=== PATIENT | female | born 1970 | race Caucasian/White ===

== ENCOUNTER 2019-12-19 17:22 | Outpatient (CLI) | payer BC, SELFPAY ==
--- NOTE | ~2019-12-19 | XR_ITS ---
XR abdomen/kub 1V 12/19/2019 17:58 Indication: Kidney stones Procedure: KUB Comparison: Comparison to multiple prior studies sequentially, with oldest reviewed study dated 07/2018. Findings: Bowel pattern is nonobstructive. Moderate colonic fecal loading. There are multiple pelvic phleboliths. No definite renal or ureteral stones are identified. Interval removal of left internal u reteral stent. Stones noted in the left kidney on prior examination are not visualized currently. The re are surgical changes of the spine at L3 and L4, unchanged. Impression: 1: No acute abdominal abnormality. Reviewed, dictated and finalized at location A. TER SCORER Impression: 1: No acute abdominal abnormality.
--- NOTE | ~2019-12-19 | CT_ITS ---
EXAMINATION: CT abdomen pelvis wo con DATE: 12/19/2019 18:02 INDICATION: Calcium kidney stone TECHNIQUE: Computed tomography (CT) of the abdomen and pelvis was performed without intravenous contr ast. Automated exposure control and iterative reconstruction technique were employed. Exam dose: 241 .53 mGy-cm total exam DLP. COMPARISON: None. FINDINGS: Small right fat-containing foramen of Bochdalek hernia. The lung bases are clear. Normal heart size. No pericardial or pleural effusion. The liver, gallbladder, bile ducts, spleen, pancreas, pancreatic duct and adrenal glands are unremark able. No apparent renal space-occupying mass lesion is evident on this limited noncontrast examination. There are 3 adjacent medial mid to upper left renal nonobstructing calculi measuring approximately 2. 5 mm, 5 mm and 11 mm maximal dimension. The largest of these has an attenuation of approximately 920 Hounsfield units. No other definite urinary tract calculus. No hydroureteronephrosis. The urinary bladder is relatively evacuated. Normal caliber of the abdominal aorta. No intraperitoneal or retroperitoneal or pelvic mass lesion or adenopathy or ascites. Normal appendix. No bowel obstruction or intraperitoneal free air. Postoperative changes of the posterior elements of L3 and L4. Unilateral left L5 pars interarticularis defect. No spondylolisthesis. No suspicious osteolytic or os teoblastic lesions are noted. IMPRESSION: Nonobstructive left nephrolithiasis Reviewed, dictated and finalized at Location A. Reviewed, dictated and finalized at location B. SAPPER
== END 2019-12-19 17:23 | disposition home or self-care (01) ==
PROVIDERS: PCP Family Medicine; Visit Provider Urology
DX: N20.0 Calculus of kidney (principal)
CPT/HCPCS: 74018; 74176

== ENCOUNTER 2020-10-14 09:04 | Emergency (ER) | payer OTHER, BC, SELFPAY ==
--- NOTE | ~2020-10-14 | CT_ITS ---
EXAMINATION: CT abdomen pelvis wo con DATE: 10/14/2020 10:47 INDICATION: Kidney stone TECHNIQUE: Computed tomography (CT) of the abdomen and pelvis was performed without intravenous contr ast. Automated exposure control and iterative reconstruction technique were employed. The dose-length product was 793.18 mGy-cm. COMPARISON: 12/19/2019 and 12/30/2017 FINDINGS: Minimal dependent atelectasis in the bilateral lower lobes. Heart size is normal. No pericardial or p leural effusion. Liver, gallbladder, spleen, pancreas, right kidney and bilateral adrenal glands are normal. Cluster of 3 calcifications in the region of cortical scarring at the upper pole of the left kidney, the largest of calcification measuring 9 x 4 x 6 mm, the smaller calcifications measuring 3 m m and 1 mm. No stones at the right kidney or along the course of the ureters. No hydronephrosis. Unch anged pattern of phleboliths in the pelvis. Moderate amount of stool scattered throughout the colon. No abnormal bowel wall thickening or obstruction. Appendix is normal. Bladder is normal. The uterus i s not identified and has likely been surgically resected. No free intraperitoneal gas or fluid. No pa thologically enlarged abdominal or pelvic lymphadenopathy. Left-sided. L5 pars interarticularis defec t. Postoperative changes in the lower lumbar spine with plate and screw fixation spanning osteotomies at the left and right lamina at L3 and L4. IMPRESSION: 1. Unchanged nonobstructing left nephrolithiasis. Reviewed, dictated and finalized at location A. O VISUAL COORDINATOR
[2020-10-14 09:08] VITALS: BP 122/81; PULSE 60; RESP 16; TEMP 36.8; O2SAT 100
[2020-10-14 10:19] LABS: Basophils Percent Auto 0.7 % (0.2-1.2); Eosinophils Absolute Auto 0.3 K/mm3 (0-0.3); Eosinophils Percent Auto 4.8 % (0-4.4); Hematocrit 39.7 % (37.0-47.0); Hemoglobin 13.8 g/dL (12.0-15.0); Immature Granulocyte Absolute 0.01 K/mm3 (0.00-0.031); Immature Granulocyte Percent A 0.2 % (0-0.5); Lymphocytes Absolute Auto 1.63 K/mm3 (0.9-3.2); Lymphocytes Percent Auto 28.8 % (18.3-44.2); Mean Corpuscular HGB Conc 34.8 g/dl (32-36); Mean Corpuscular Hemoglobin 30.7 pg (26-34); Mean Corpuscular Volume 88.2 fl (80-100); Mean Platelet Volume 9.4 fl (7.4-10.4); Monocytes Absolute Auto 0.5 K/mm3 (0.1-0.6); Neutrophils Absolute Auto 3.2 K/mm3 (1.3-6.7); Neutrophils Percent Auto 56.5 % (45.5-73.1); Platelet Count Result 282 k/mm3 (150-375); Red Cell Distribution Width 11.9 % (11.5-14.5); White Blood Count 5.7 K/mm3 (4.5-10.0)
--- NOTE | 2020-10-14 10:21 | ED.BACK ---
HPI - Back Pain/Injury General Chief Complaint: Back Pain/Injury Stated Complaint: CHRONIC BACK PAIN Time Seen by Provider: 10/14/20 10:07 Source: patient and family Mode of arrival: ambulatory Limitations: no limitations History of Present Illness HPI Narrative: Patient presents with lower back pain started last night after getting up from a chair suddenly. History of chronic lower back pain, surgery, intermittent flareup. Patient denies any trauma. Also denies any fever, chills, nausea, vomiting, abdominal pain, urinary symptoms. Patient reports having history of total hysterectomy and started having vaginal bleeding yesterday. Patient reports a history of kidney stone. Related Data Home Medications Medication Instructions Recorded Confirmed conjugated estrogens [Premarin] 0.625 mg VAGINAL DAILY 10/14/20 triamcinolone acetonide applic TOPICAL 10/14/20 Allergies Allergy/AdvReac Type Severity Reaction Status Date / Time No Known Allergies Allergy Verified 10/14/20 10:01 Review of Systems Review of Systems: Narrative: CONSTITUTIONAL: Denies fever, chills, or sweats. EYES: Denies visual changes, redness, or discharge. ENT: Denies rhinorrhea, congestion, sore throat, or otalgia. CARDIOVASCULAR: Denies chest pain, palpitations, or edema. RESPIRATORY: Denies cough or dyspnea. GASTROINTESTINAL: Denies abdominal pain, nausea, vomiting, or diarrhea. GENITOURINARY: Denies dysuria or hematuria. SKIN: Denies rash or itching. MUSCULOSKELETAL: Lower back pain NEUROLOGIC: Denies headache, numbness, or weakness. PSYCHIATRIC: Denies anxiety or depression. PMFSH Social History Social History Smoking status: Never smoker Exam Narrative: Exam Narrative: General appearance: Well-developed, well-nourished, significant other at the bedside Skin: Normal color Head: Normocephalic, nontraumatic Eyes: Clear conjunctiva ENT: Oropharynx normal, ears normal, nose normal Neck: Supple, nontender Chest and respiratory: Airway patent, no respiratory distress, no accessory muscle use Heart: Regular rate/rhythm Abdomen: Soft, nontender, no organomegaly, quiet bowel sounds Vascular: Normal peripheral pulses, normal capillary refill. Musculoskeletal: Decreased range of motion, mild diffuse tenderness across lumbar area with deep palpation Neurologic: Alert and oriented ?3, ASSISTANT AT SURGERY is normal as tested, no gross motor deficit : External Female Exam: normal external appearance Speculum Exam - Vagina: normal appearance of the vagina, normal palpation and swelling (No vaginal bleeding whatsoever) Course Course Emergency Course: Improving Vital Signs Vital signs: Vital Signs Temperature 36.8 C 10/14/20 09:08 Pulse Rate 60 10/14/20 09:08 Respiratory Rate 16 10/14/20 09:08 Blood Pressure 122/81 10/14/20 09:08 Pulse Oximetry 100 10/14/20 09:08 Temperature 36.8 C 10/14/20 09:08 Pulse Rate 51 L 10/14/20 11:19 Respiratory Rate 18 10/14/20 10:42 Blood Pressure 100/68 10/14/20 11:19 Pulse Oximetry 99 10/14/20 11:19 MDM - Back Pain/Injury MDM Narrative Medical decision making narrative: Exacerbation of chronic lower back pain. Labs, CT abdomen pelvis rule out kidney stone, urine analysis ordered. Toradol, Dilaudid, Zofran, Valium IV ordered. Differential Diagnosis Differential diagnosis: Likely strain of lumbar region, renal colic and pyelonephritis Lab Data Result diagrams: 10/14/20 10:13 10/14/20 10:13 Labs: Lab Results 10/14/20 10/14/20 10/14/20 Range/Units 10:13 10:13 10:33 WBC 5.7 (4.5-10.0) K/mm3 RBC 4.50 (4.2-5.4) M/mm3 Hgb 13.8 (12.0-15.0) g/dL Hct 39.7 (37.0-4
[2020-10-14] MEDS: diazePAM INJ (*CRX) 10 MG/2 ML SYRINGE 5 MG IV PUSH (10:30)
[2020-10-14] MEDS: ONDANSETRON INJ 4 MG/2 ML VIAL IV PUSH (10:30)
[2020-10-14] MEDS: HYDROmorphone HCL INJ (*CRX) 1 MG/ML SYR 0.5 MG IV PUSH (10:30)
[2020-10-14 10:31] LABS: Alanine Aminotransferase 24 U/L (4-35); Albumin Level 4.2 g/dL (3.5-5.1); Alkaline Phosphatase 85 U/L (38-126); Anion Gap 5 mmol/L (8-16); Aspartate Amino Transferase 26 U/L (14-36); Bilirubin,Total 0.4 mg/dL (0.2-1.3); Blood Urea Nitrogen 17 mg/dL (7-17); Calcium 9.2 mg/dL (8.4-10.2); Carbon Dioxide 27 mmol/L (22-30); Chloride 107 mmol/L (98-107); Estimated CRCL calculation 80 ml/min; Estimated Glomerular Filt Rate > 60; Glucose 100 mg/dL (65-105); Potassium 3.7 mmol/L (3.4-5.0); Sodium 139 mmol/L (137-145)
[2020-10-14 10:42] VITALS: BP 120/74; PULSE 57; RESP 18; O2SAT 98
--- NOTE | 2020-10-14 10:42 | PC.NURSE ---
Patient reported dizziness after pain meds given. Vitals taken. VSS.
[2020-10-14 10:48] LABS: Add Urine Microscopic? NO; Appearance Urine Clear (Clear); Bacteria Urine Trace /hpf; Bilirubin Urine Negative (Negative); Blood Urine Negative (Negative); Color Urine Straw (Yellow); Glucose Urine UA Negative (Negative); Ketones Urine Negative (Negative); Leukocyte Esterase Ur Negative LEU/UL (Negative); Nitrate Urine Negative (Negative); Protein Urine Negative (Negative); RBC Urine 0-2 /hpf (0-2); Specific Grav Ur 1.009 (1.001-1.035); Squamous Epithelial Cell Urine Occasional /hpf (Few); Urobilinogen Urine Negative mg/dL (<2.0); WBC Urine 0-3 /hpf
[2020-10-14] MEDS: KETOROLAC 30 MG/ML VIAL (*BKC) IV PUSH (10:49)
--- NOTE | 2020-10-14 10:56 | PC.NURSE ---
Patient placed on 2L oxygen per NC due to low oxygen saturation of 88% after medication admin.
[2020-10-14 11:19] VITALS: BP 100/68; PULSE 51; O2SAT 99
[2020-10-14 12:56] VITALS: BP 124/68; PULSE 58; RESP 16; O2SAT 98
== END 2020-10-14 12:58 | disposition home or self-care (01) ==
PROVIDERS: Emergency Provider Emergency Medicine; PCP Family Medicine
DX: M54.5 Low back pain (principal); G89.29 Other chronic pain
CPT/HCPCS: 36415; 74176; 80053; 81003; 85025; 96374; 96375; 99284; J1170; J1885; J2405; J3360

== ENCOUNTER → 2021-07-11 13:42 | Outpatient (CLI) | payer OTHER, BC, SELFPAY ==
--- NOTE | ~2021-07-11 | XR_ITS ---
XR finger 4th LT min 2V 07/11/2021 14:07 Indication: Left fourth finger pain Procedure: 4 views left fourth finger Comparison: No prior studies for comparison. Findings: There is a nondisplaced fracture of the fourth distal phalanx. No definite intra-articular extension. Mild soft tissue swelling. No foreign bodies. Impression: 1: Nondisplaced extra-articular fracture left fourth distal phalanx. Reviewed, dictated and finalized at location A. Impression: 1: Nondisplaced extra-articular fracture left fourth distal phalanx.
== END ==
PROVIDERS: PCP Family Medicine; Visit Provider Family Medicine
DX: S62.665A Nondisplaced fracture of distal phalanx of left ring finger, initial encounter for closed fracture (principal)
CPT/HCPCS: 73140

== ENCOUNTER → 2021-12-11 16:03 | Outpatient (CLI) | payer OTHER, BC, SELFPAY ==
--- NOTE | ~2021-12-11 | MM_ITS ---
EXAMINATION: MM screening [facility] BI w alise HISTORY: Screening mammogram TECHNIQUE: Craniocaudal and mediolateral oblique 3-D tomosynthesis images were obtained and synthetic 2-D images were generated. CAD analysis was submitted and interpreted. COMPARISON: 05/13/2019, 01/05/2017, 12/25/2016 BREAST PARENCHYMAL COMPOSITION: There are scattered areas of fibroglandular density. FINDINGS: Scattered benign-appearing calcifications are present. There is no evidence of suspicious m ass, calcification, or architectural distortion to suggest malignancy in either breast. There has bee n no suspicious interval change. IMPRESSION: 1. No mammographic evidence of malignancy. 2. Recommend routine screening mammography in one year. BI-RADS Category 2: Benign finding(s). Reviewed, dictated and finalized at location A. [place] INVENTORY CONTROL CLERK
== END ==
PROVIDERS: PCP Family Medicine; Visit Provider Nurse Practitioner
DX: Z12.31 Encounter for screening mammogram for malignant neoplasm of breast (principal)
CPT/HCPCS: 77063; 77067

== ENCOUNTER 2022-12-22 11:54 | Emergency (ER) | payer OTHER, SELFPAY ==
[2022-12-22 11:58] VITALS: BP 144/98; PULSE 87; RESP 20; TEMP 36.5; O2SAT 97
[2022-12-22] MEDS: diphenhydrAMINE HCl INJ 50 MG/ML VIAL IV PUSH (13:06)
[2022-12-22 13:18] LABS: Basophils Percent Auto 0.4 % (0.2-1.2); Eosinophils Absolute Auto 0.1 K/mm3 (0-0.3); Eosinophils Percent Auto 0.8 % (0-4.4); Hematocrit 43.9 % (37.0-47.0); Hemoglobin 15.1 g/dL (12.0-15.0); Immature Granulocyte Absolute 0.04 K/mm3 (0.00-0.031); Immature Granulocyte Percent A 0.5 % (0-0.5); Lymphocytes Absolute Auto 1.38 K/mm3 (0.9-3.2); Lymphocytes Percent Auto 16.1 % (18.3-44.2); Mean Corpuscular HGB Conc 34.4 g/dl (32-36); Mean Corpuscular Hemoglobin 30.4 pg (26-34); Mean Corpuscular Volume 88.3 fl (80-100); Mean Platelet Volume 9.3 fl (7.4-10.4); Monocytes Absolute Auto 0.3 K/mm3 (0.1-0.6); Monocytes Percent Auto 3.2 % (2.6-8.5); Neutrophils Absolute Auto 6.8 K/mm3 (1.3-6.7); Platelet Count Result 339 k/mm3 (150-375); Red Blood Count 4.97 M/mm3 (4.2-5.4); Red Cell Distribution Width 12.1 % (11.5-14.5); White Blood Count 8.6 K/mm3 (4.5-10.0)
[2022-12-22 13:27] LABS: Alanine Aminotransferase 35 U/L (6-35); Albumin Level 4.8 g/dL (3.5-5.1); Alkaline Phosphatase 102 U/L (38-126); Anion Gap 8 mmol/L (8-16); Aspartate Amino Transferase 34 U/L (14-36); Bilirubin,Total 0.5 mg/dL (0.2-1.3); Blood Urea Nitrogen 21 mg/dL (7-17); Calcium 9.1 mg/dL (8.4-10.2); Carbon Dioxide 26 mmol/L (22-30); Chloride 101 mmol/L (98-107); Estimated CRCL calculation 78 ml/min; Estimated Glomerular Filt Rate > 60; Glucose 137 mg/dL (65-110); Potassium 4.2 mmol/L (3.4-5.0); Sodium 135 mmol/L (137-145)
[2022-12-22] MEDS: methylPREDNISolone SOD SUCC 125 MG VIAL IV PUSH (13:27)
--- NOTE | 2022-12-22 13:58 | ED.ALLEREA ---
HPI - Allergic Reaction General Chief complaint: Allergic Reaction Stated complaint: Allergic reaction Time Seen by Provider: 12/22/22 12:33 History of Present Illness HPI narrative: This is a 52-year-old female who presents with chief complaint of allergic reaction after taking amoxicillin today. She was prescribed this for sinusitis. She states that she also took prednisone at the same time. No known allergy to amoxicillin until today. Denies any other new foods, soaps, potential causes of the rash. Rash is itchy, not swelling denies fevers, chills, lip swelling, tongue swelling, shortness of breath, throat swelling. Related Data Home Medications Medication Instructions Recorded Confirmed conjugated estrogens 0.625 mg/gram 0.625 mg vaginal DAILY 10/14/20 09/17/21 vaginal cream (Premarin) Allergies Allergy/AdvReac Type Severity Reaction Status Date / Time amoxicillin Allergy Hives Verified 12/22/22 13:23 Review of Systems Review of Systems: CONSTITUTIONAL: Denies fever, chills, or sweats. EYES: Denies visual changes, redness, or discharge. ENT: Denies rhinorrhea, congestion, sore throat, or otalgia. CARDIOVASCULAR: Denies chest pain, palpitations, or edema. RESPIRATORY: Denies cough or dyspnea. GASTROINTESTINAL: Denies abdominal pain, nausea, vomiting, or diarrhea. GENITOURINARY: Denies dysuria or hematuria. SKIN: Endorses diffuse rash and itching. MUSCULOSKELETAL: Denies back pain, joint pain, or myalgia. NEUROLOGIC: Denies headache, numbness, dizziness, or weakness. PSYCHIATRIC: Denies anxiety or depression. PMFSH Surgical History Surgical History History of hand surgery History of hysterectomy Previous back surgery Family History Family History Mother Diabetes mellitus Hypertension Vulva cancer Father Hypertension Melanoma Glaucoma Heart disease Social History Social History (Updated 10/04/21 @ 16:25 by Salome Rodriguez CMA) Second hand tobacco smoke exposure: No Alcohol intake: never Substance use: never Living arrangements: with family Occupation/Education: occupation Gender identity (if verbalized by the patient): Female Exam Narrative: GENERAL: Well-appearing, well-nourished, and in no acute distress. HEAD: Normocephalic, atraumatic. EYES: PERRLA and EOMI. ENT: Nares clear, no rhinorrhea or epistaxis. Mucous membranes moist. Oropharynx without tonsillar hypertrophy exudate or other lesions. No angioedema is present. NECK: Supple. No adenopathy or masses. CHEST: No respiratory distress. Clear to auscultation. No wheezes rales or rhonchi HEART: Regular rate and rhythm. No murmur heard. Normal peripheral pulses. ABDOMEN: Soft, nontender, nondistended, normal active bowel sounds. EXTREMITIES: Normal range of motion. No edema. SKIN: Diffuse macular rash in the upper and lower extremities, as well as the back. Warm, dry, no palmar or other lesions on the soles of the feet. NEURO: Alert and oriented x3. No focal deficits. PSYCH: Normal mood and affect. Course Course Emergency Course: significantly improved with benadryl and solumedrol Vital Signs Vital signs: Vital Signs Temperature 97.7 F 12/22/22 11:58 Pulse Rate 87 12/22/22 11:58 Respiratory Rate 12/22/22 11:58 Blood Pressure 144/98 H 12/22/22 11:58 Pulse Oximetry 97 12/22/22 11:58 Oxygen Delivery Room Air 12/22/22 11:58 Temperature 97.7 F 12/22/22 11:58 Pulse Rate 87 12/22/22 11:58 Respiratory Rate 20 12/22/22 11:58 Blood Pressure 144/98 H 12/22/22 11:58 Pulse Oximetry 97 12/22/22 11:58 Oxygen Delivery Room Air 12/22/22 11:58 MDM - Allergic Reaction MDM Narrative Medical decision making narrative: This is a 52-year-old female comes in with a chief complaint of allergic reaction after taking amoxicillin today. Started about 1 hour after she took
== END 2022-12-22 14:43 | disposition home or self-care (01) ==
PROVIDERS: Emergency Provider Physician Assistant; PCP Family Medicine
DX: L27.0 Generalized skin eruption due to drugs and medicaments taken internally (principal); T36.0X5A Adverse effect of penicillins, initial encounter; J32.9 Chronic sinusitis, unspecified; Z90.710 Acquired absence of both cervix and uterus
CPT/HCPCS: 36415; 80053; 85025; 96374; 96375; 99284; J1200; J2930

== ENCOUNTER 2023-03-07 08:02 | Emergency (ER) | payer OTHER, SELFPAY ==
--- NOTE | 2023-03-07 08:09 | ED.URI ---
HPI - URI/Sore Throat General Chief Complaint: Upper Respiratory Infection Stated Complaint: SWOLLEN TONSILS/DIFF BREATHING Source: patient and RN notes reviewed History of Present Illness HPI Narrative: 33-year-old female presents to urgent care with complaints of a sore throat since yesterday. Patient states last night she noticed when she laid down she felt like she could breathe due to possibly her uvula being swollen. Patient denies any congestion, ear pain, no known fevers, vomiting, abdominal pain chest pain, or shortness of breath. Patient did take Advil and Tylenol last night with little relief. Some parts of this dictation were generated by voice recognition software and may contain typographical and/or grammatical inaccuracies. Related Data Allergies Allergy/AdvReac Type Severity Reaction Status Date / Time amoxicillin Allergy Hives Verified 12/22/22 13:23 Penicillins Allergy Hives Verified 03/07/23 08:15 Review of Systems Review of Systems: Pertinent positives and pertinent negatives per HPI. [facility] Surgical History Surgical History History of hand surgery History of hysterectomy Previous back surgery Family History Family History Mother Diabetes mellitus Hypertension Vulva cancer Father Hypertension Melanoma Glaucoma Heart disease Social History Social History (Updated 10/04/21 @ 16:25 by Salome Rodriguez [facility]) Second hand tobacco smoke exposure: No Alcohol intake: never Substance use: never Living arrangements: with family Occupation/Education: occupation Gender identity (if verbalized by the patient): Female Comments At the time of my signature, I reviewed and agree with the nursing past medical, surgical, social, and family history. There is no relevant family history pertinent to the patient complaint. Exam Narrative: GENERAL: This is a well-nourished, well-developed patient, in no apparent distress. HEAD: normocephalic, atraumatic. EYES: Sclera clear/white. Vision is grossly intact. EARS: External ears normal, auditory canals clear and without drainage, TMs normal without perforation. Hearing grossly intact. NOSE: External nose normal with no obvious nasal discharge, nares without redness, no rhinorrhea. THROAT: Mucous membranes moist, posterior pharynx erythremic. Uvula mildly edematous. NECK: Neck supple, non-tender without lymphadenopathy, masses or thyromegaly. CARDIOVASCULAR: Regular rate and rhythm without murmurs, gallops, or rubs. RESPIRATORY: Clear to auscultation. Breath sounds equal bilaterally. No wheezes, rales, or rhonchi. SKIN: warm, intact with no suspicious lesions or rash, good texture and turgor. NEURO: awake, alert, and oriented to person, place and time. There were no obvious focal neurologic abnormalities. Course Course Level of Care: Express Care Visit Vital Signs Vital signs: Vital Signs Temperature 99 F 03/07/23 08:19 Pulse Rate 92 03/07/23 08:19 Respiratory Rate 16 03/07/23 08:19 Blood Pressure 127/97 H 03/07/23 08:19 Pulse Oximetry 99 03/07/23 08:19 Temperature 99 F 03/07/23 08:19 Pulse Rate 92 03/07/23 08:19 Respiratory Rate 16 03/07/23 08:19 Blood Pressure 127/97 H 03/07/23 08:19 Pulse Oximetry 99 03/07/23 08:19 Reviewed MDM - URI/Sore Throat MDM Narrative Medical decision making narrative: After 24 hours on antibiotics throw tooth brush away and start using a new one. Increase your Vitamin C. Do not share drinks. Take Motrin alternating with Tylenol for pain and/or fever alternating every 4 hours. Increase fluids, avoid caffeine. Take a probiotic daily or eat a low sugar yogurt while taking the antibiotic. Follow up with Primary provider if not getting better this week Differential Diagnosis Differential diagnosis: Likely upper respiratory infection, viral infect
[2023-03-07 08:19] VITALS: BP 127/97; PULSE 92; RESP 16; TEMP 37.2; O2SAT 99
== END 2023-03-07 08:41 | disposition home or self-care (01) ==
PROVIDERS: Emergency Provider Nurse Practitioner Family; PCP Family Medicine
DX: J02.0 Streptococcal pharyngitis (principal)
CPT/HCPCS: 87880; 99213; G0463

== ENCOUNTER → 2023-08-08 09:20 | Outpatient (CLI) | payer OTHER, SELFPAY ==
--- NOTE | ~2023-08-08 | US_ITS ---
EXAMINATION: US thyroid DATE: 08/08/2023 09:44 INDICATION: Reynaldo thyroiditis, dysphonia. TECHNIQUE: Multiple ultrasound images of the thyroid were obtained. COMPARISON: None. FINDINGS: The right thyroid lobe measures 5.2 x 2.3 x 1.5 cm. The left thyroid lobe measures 3.9 x 1.0 x 1.4 c m. The isthmus measures 0.2 cm. There is heterogeneous echotexture throughout the thyroid gland. No d iscrete nodules identified. Normal vascular flow is present. IMPRESSION: Heterogeneous thyroid gland, as can be seen with Reynaldo thyroiditis and Graves' disease. Reviewed, dictated and finalized at location K. IMPRESSION: Heterogeneous thyroid gland, as can be seen with Reynaldo thyroiditis and Grav es' disease.
== END ==
PROVIDERS: PCP Chiropractor; Visit Provider Physician Assistant
DX: R49.0 Dysphonia (principal)
CPT/HCPCS: 76536

== ENCOUNTER 2024-04-04 15:43 | Outpatient (CLI) | payer OTHER, SELFPAY ==
--- NOTE | ~2024-04-04 | MM_ITS ---
EXAMINATION: MM screening [facility] BI w alise HISTORY: Screening TECHNIQUE: Craniocaudal and mediolateral oblique 3-D tomosynthesis images were obtained and synthetic 2-D images were generated. CAD analysis was submitted and interpreted. COMPARISON: Comparison to multiple prior studies sequentially, with oldest reviewed study dated 12/25. BREAST PARENCHYMAL COMPOSITION: Not dense: There are scattered areas of fibroglandular density. FINDINGS: There is no evidence of suspicious mass, calcification, or architectural distortion to sugg est malignancy in either breast. There has been no suspicious interval change. IMPRESSION: 1. No mammographic evidence of malignancy. 2. Recommend routine screening mammography in one year. BI-RADS Category 1: Negative Reviewed, dictated and finalized at location B.
== END 2024-04-04 15:44 ==
LOC: MICIMG 15:43
PROVIDERS: PCP Nurse Practitioner; Visit Provider Nurse Practitioner
DX: Z12.31 Encounter for screening mammogram for malignant neoplasm of breast (principal)
CPT/HCPCS: 77063; 77067

== ENCOUNTER 2024-04-20 08:40 | Outpatient (CLI) | payer OTHER, SELFPAY ==
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
== END 2024-04-20 08:41 ==
PROVIDERS: PCP Nurse Practitioner Family; Visit Provider Nurse Practitioner Family
DX: M25.532 Pain in left wrist (principal); W19.XXXD Unspecified fall, subsequent encounter; Y93.55 Activity, bike riding
CPT/HCPCS: 73110; 73120

== ENCOUNTER 2024-06-07 15:07 | Outpatient (CLI) | payer OTHER, SELFPAY ==
--- NOTE | ~2024-06-07 | CT_ITS ---
Non-contrast CT scan of the Abdomen and Pelvis Clinical indication: Left flank pain Technique: 2.5 mm axial scans were obtained through the abdomen and pelvis without intravenous or or al contrast. Dose reduction technique was used on this scan by utilizing automated exposure control a nd iterative reconstruction technique. The dose-length product (DLP) was 889.54 mGy-cm. COMPARISON: 10/14/2020 Findings: Images through the lung bases reveal no abnormalities. There is no evidence of renal or ureteral calculi. The kidneys and the ureters are nondilated. Stable cortical calcification of the left kidney. The liver, spleen, pancreas, gallbladder, and adrenals appear normal. There is no aortic aneurysm. There is no evidence of bowel obstruction. Images through the pelvis were performed. There is no evidence of ascites or lymphadenopathy. Urinary bladder unremarkable. No pelvic mass seen. Impression: Stable left renal cortical calcification versus stone. Reviewed, dictated and finalized at [facility]. Impression: Stable left renal cortical calcification versus stone.
== END 2024-06-07 15:08 ==
LOC: MICIMG 15:07
PROVIDERS: PCP Urology; Visit Provider Urology
DX: R10.9 Unspecified abdominal pain (principal)
CPT/HCPCS: 74176

== ENCOUNTER 2025-04-05 15:16 | Outpatient (CLI) | payer OTHER, SELFPAY ==
--- NOTE | ~2025-04-05 | MM_ITS ---
EXAMINATION: MM screening [facility] BI w alise HISTORY: Screening mammogram TECHNIQUE: Craniocaudal and mediolateral oblique 3-D tomosynthesis images were obtained and synthetic 2-D images were generated. CAD analysis was submitted and interpreted. COMPARISON 04/04/2024 through 12/25/2016 BREAST PARENCHYMAL COMPOSITION: There are scattered areas of fibroglandular density. FINDINGS: Scattered benign-appearing calcifications are present. There is no evidence of suspicious m ass, calcification, or architectural distortion to suggest malignancy in either breast. There has bee n no suspicious interval change. IMPRESSION: 1. No mammographic evidence of malignancy. 2. Recommend routine screening mammography in one year. BI-RADS Category 2: Benign finding(s). Reviewed, dictated and finalized at location B.
== END 2025-04-05 15:17 | disposition home or self-care (01) ==
PROVIDERS: PCP Family Medicine; Visit Provider Nurse Practitioner
DX: Z12.31 Encounter for screening mammogram for malignant neoplasm of breast (principal)
CPT/HCPCS: 77063; 77067